=== PATIENT | female | born 1980 | race American Indian/Alaskan Native ===

== ENCOUNTER 2018-01-03 11:00 | Outpatient (CLI) | payer OTHER | END 2018-01-03 11:01 | disposition home or self-care (01) | LOC: SLR 11:00 | PROVIDERS: ATTEND Otolaryngology | DX: G47.30 Sleep apnea, unspecified (principal); R40.0 Somnolence | CPT/HCPCS: 95810 ==

== ENCOUNTER 2018-01-12 12:48 | Outpatient (CLI) | payer OTHER ==
--- NOTE | 2018-01-12 14:16 | Cat Scan Report ---
CT SINUSES WITHOUT CONTRAST: HISTORY: Chronic ethmoidal sinusitis. TECHNIQUE: Helical CT with sagittal and coronal reformatted images. The visualized sinus groups are well aerated. The ostiomeatal units are normal and patent bilaterally. The nasal septum is midline. The nasal turbinates are symmetrical. There is no evidence of mel bullosa or sinusitis. CONCLUSION: Negative sinus CT.
== END 2018-01-12 12:49 | disposition home or self-care (01) ==
LOC: CT 12:48
PROVIDERS: ATTEND Otolaryngology
DX: J32.2 Chronic ethmoidal sinusitis (principal)
CPT/HCPCS: 70486

== ENCOUNTER 2019-03-14 06:45 | Day surgery (SDC) | payer OTHER ==
--- NOTE | 2019-03-14 08:13 | Anesthesia Day of Surgery ---
Anesthesia Day of Surgery - Day of Surgery Patient Examined: Yes Patient H&P Reviewed: Yes Patient is NPO: Yes
--- NOTE | 2019-03-14 08:17 | Anesthesia Consultation ---
Anesthesia Consult and Med Hx Date of service: 03/14/19 - Airway Anesthetic Teeth Evaluation: Good ROM Head & Neck: Adequate Mental/Hyoid Distance: Adequate Mallampati Class: Class I Intubation Access Assessment: Good - Pre-Operative Health Status ASA Pre-Surgery Classification: ASA3 Proposed Anesthetic Plan: MAC - Other Systems Hx Obesity: Yes
[2019-03-14] MEDS ORDERED: NACL 0.9% 1000 ML 1,000 ML IV SCH (09:00)
[2019-03-14] MEDS ORDERED: VERSED ONE (09:29)
[2019-03-14] MEDS ORDERED: DIPRIVAN 10 MG/ML IV ONE (09:30)
--- NOTE | 2019-03-14 11:42 | Operative Report ---
SURGEON: Fletcher Thakur MD VALVE INSPECTOR: Tia Hunter MD PREOPERATIVE DIAGNOSIS: Morbid obesity. POSTOPERATIVE DIAGNOSIS: Normal esophagogastroduodenoscopy. PROCEDURE: EGD. ANESTHESIA: MAC. COMPLICATIONS: None. BLEEDING: None. SPECIMENS: None. INDICATIONS: The patient is a 38-year-old female with a history of morbid obesity. She is here for preoperative EGD in preparation for her weight loss surgery. Informed consent was obtained. DESCRIPTION OF PROCEDURE: The patient was brought to the GI suite where she was placed in the left lateral decubitus position and underwent MAC anesthesia. A bite block was placed and a timeout was called. A standard adult gastroscope was inserted into the oropharynx, down the esophagus, into the stomach and the first portion of the duodenum. There was no abnormality up to the portion of D1. On retroflexion view, there was no hiatal hernia. With this, the air was suctioned out. The gastroscope was removed. The patient tolerated the procedure well with no immediate complications and was transferred to the PACU in stable condition. JOB# [id number] RASHAD/ROZ
[2019-03-14 11:55] VITALS: BP 107/57
== END 2019-03-14 06:46 | disposition home or self-care (01) ==
LOC: GIO 06:45
PROVIDERS: ATTEND Specialist
DX: K30 Functional dyspepsia (principal); E66.01 Morbid (severe) obesity due to excess calories; Z87.891 Personal history of nicotine dependence; Z88.0 Allergy status to penicillin; Z79.899 Other long term (current) drug therapy; Z68.42 Body mass index [BMI] 45.0-49.9, adult
CPT/HCPCS: 43235; 81025; J2250; J2704; J7030

== ENCOUNTER 2019-03-21 07:30 | Inpatient (IN) | payer OTHER ==
--- NOTE | 2019-03-20 10:04 | Anesthesia Consultation ---
Anesthesia Consult and Med Hx Date of service: 03/20/19 - Airway Anesthetic Teeth Evaluation: Good ROM Head & Neck: Adequate Mental/Hyoid Distance: Adequate Mallampati Class: Class I Intubation Access Assessment: Probably Good - Pulmonary Exam CTA: Yes - Cardiac Exam Cardiac Exam: RRR - Pre-Operative Health Status ASA Pre-Surgery Classification: ASA3 Proposed Anesthetic Plan: General - Pulmonary Hx Smoking: Yes (former smoker) Hx Respiratory Symptoms: No COPD: No Hx Sleep Apnea: No (sleep study neg) - Cardiovascular System Hx Hypertension: No Hx Heart Attack/AMI: No (neg cardiology work up) Hx Percutaneous Transluminal Coronary Angioplasty (PTCA): No Hx Cardia Arrhythmia: No - Central Nervous System Hx Seizures: No CVA: No Hx Psychiatric Problems: No - Gastrointestinal Hx Gastroesophageal Reflux Disease: No - Endocrine Hx Renal Disease: No Hx Liver Disease: No Hx Insulin Dependent Diabetes: No Hx Non-Insulin Dependent Diabetes: No Hx Thyroid Disease: No - Hematic Hx Anemia: No - Other Systems Hx Substance Use: Yes (Marijuana -last used 03/09/19) Hx Cancer: No Hx Obesity: Yes (BMI 48) - Additional Comments Anesthesia Medical History Comments: No prior GA. No FHx anesthetic complications. Preop cardiology eval unremarkable. Outside lab results drawn 03/09/19 requested.
[~2019-03-21 07:30] MED LIST: CLEOCIN 600 MG/50 mL 600 MG/50 ML BAG IV NR; FLAGYL 500 MG/100 ML 500 MG/100 ML BAG IV NR; GENTAMICIN IV SCH; LACTATED RINGERS 1,000 ML IV SCH; VERSED IV NR
[2019-03-21] MEDS ORDERED: GENTAMICIN 200 MG in NACL 0.9% 100 ML IV NR (10:00)
--- NOTE | 2019-03-21 10:05 | Anesthesia Day of Surgery ---
Anesthesia Day of Surgery - Day of Surgery Patient Examined: Yes Patient H&P Reviewed: Yes Patient is NPO: Yes
[2019-03-21] MEDS ORDERED: NORCO PO PRN (10:13)
[2019-03-21] MEDS ORDERED: ZOFRAN IV PRN ×2 (10:13→15:00)
[2019-03-21] MEDS ORDERED: APRESOLINE IV PRN (10:13)
[2019-03-21] MEDS ORDERED: MORPHINE IV PRN (10:13)
[2019-03-21] MEDS ORDERED: REGLAN IV PRN (10:13)
[2019-03-21] MEDS ORDERED: PROVENTIL IH NR (10:15)
[2019-03-21] MEDS ORDERED: LACTATED RINGERS 1,000 ML IV SCH (11:00)
[2019-03-21] MEDS ORDERED: LOVENOX SUB-Q NR (11:00)
[2019-03-21] MEDS ORDERED: XYLOCAINE MPF 2% ONE (12:20)
[2019-03-21] MEDS ORDERED: ZEMURON IV ONE (12:20)
[2019-03-21] MEDS ORDERED: DIPRIVAN 10 MG/ML IV ONE (12:20)
[2019-03-21] MEDS ORDERED: DILAUDID ONE (12:20)
[2019-03-21] MEDS ORDERED: MARCAINE-EPI 0.5%-1:200,000 INFILTRATI ONE ×2 (12:33→13:39)
[2019-03-21] MEDS ORDERED: XYLOCAINE 1% 20 mL ONE (12:33)
[2019-03-21] MEDS ORDERED: XYLOCAINE 1% 20 mL INFILTRATI ONE (13:40)
[2019-03-21] MEDS ORDERED: NACL 0.9% IR ONE ×2 (13:40)
[2019-03-21] MEDS ORDERED: ROBINUL ONE (14:07)
[2019-03-21] MEDS ORDERED: BLOXIVERZ ONE (14:07)
[2019-03-21] MEDS ORDERED: BRIDION IV ONE ×2 (14:09→14:11)
[2019-03-21] MEDS ORDERED: ZOFRAN ONE (14:20)
[2019-03-21] MEDS: DILAUDID IV PRN ×5 (14:37→22:30)
[2019-03-21] MEDS: TORADOL IV SCH ×3 (14:37→23:50)
--- NOTE | 2019-03-21 16:39 | Post Anesthesia Evaluation ---
- Post Anesthesia Evaluation Patient Participated: Yes Airway Patent: Yes Stable Respiratory Function: Yes Nausea/Vomiting: No Temp > 96.8F: Yes Pain Manageable: Yes Adequeate Hydration: Yes Anesthesia Complications: No
[2019-03-21] MEDS: MYLICON PO PRN (17:54)
[2019-03-22] MEDS: DILAUDID IV PRN (02:49)
[2019-03-22] MEDS: MYLICON PO PRN ×2 (02:50→10:45)
[2019-03-22] MEDS: TORADOL IV SCH (06:22)
--- NOTE | 2019-03-22 07:00 | Discharge Summary ---
Providers - Providers Date of Admission: 03/21/19 09:29 Date of discharge: 03/22/19 Attending physician: MARIAA THAKUR Hospitalization Reason for admission: postop care Condition: Good Procedures: 03/21/19: Laparoscopic sleeve gastrectomy Hospital course: 38F admitted after her operation for routine care. She was managed on the general surgical floor. She ambulated, tolerated a CLD, pain controlled and was dc home in stable condition. Disposition: DC-01 TO HOME OR SELFCARE Core Measure Documentation - Palliative Care Palliative Care/ Comfort Measures: Not Applicable - Core Measures Any of the following diagnoses?: none - VTE Discharge Requirements Deep Vein Thrombosis/Pulmonary Embolism Present on Admission: No - Acute NE Discharge Requirements Aspirin at discharge: No Reason for no aspirin on DC: Surgical contraindication - Heart Failure Discharge Requirements AMY/ARB for LVSD if EF <40%: Not Applicable - Stroke Discharge Requirements Statin for LDL = or >70 mg/dl on DC: Not Applicable Exam - Physical Exam Narrative exam: Gen: AAO, NAD Heart: RRR Lungs: Clear Abd: Obese, soft, NT, ND. Bandages c/d/i. Ext: No LE Edema - Constitutional Vitals: Temp Pulse Resp BP Pulse Ox 98.8 F 70 18 110/73 97 03/21/19 23:41 03/21/19 23:41 03/22/19 02:49 03/21/19 23:41 03/21/19 23:41 Plan Diet: clear liquids Wound: keep clean and dry Special Instructions: no heavy lifting Additional Instructions: Tony Thakur as scheduled Follow up with: DR JAMES [Other] - 7 Days
[2019-03-22] MEDS ORDERED: LOVENOX SUB-Q SCH (10:00)
[2019-03-22 11:56] LABS: Basophils % (Auto) 0.1 % (0.0-1.8); Eosinophils # (Auto) 0.1 K/mm3 (0.0-0.4); Eosinophils % (Auto) 0.6 % (0.0-4.3); Hematocrit 27.6 % (30.3-42.9); Lymphocytes # (Auto) 2.9 K/mm3 (1.2-5.4); Lymphocytes % (Auto) 28.4 % (13.4-35.0); Mean Corpuscular HGB Conc 33 % (30-34); Mean Corpuscular Volume 72 fl (79-97); Monocytes # (Auto) 0.7 K/mm3 (0.0-0.8); Monocytes % (Auto) 7.3 % (0.0-7.3); Platelet Count 329 K/mm3 (140-440); Red Blood Count 3.85 M/mm3 (3.65-5.03); Red Cell Distribution Width 19.2 % (13.2-15.2)
[2019-03-22 12:24] LABS: Alanine Aminotransferase 33 units/L (7-56); Albumin 3.3 g/dL (3.9-5); BUN/Creatinine Ratio 9; Blood Urea Nitrogen 6 mg/dL (7-17); Calcium 8.4 mg/dL (8.4-10.2); Hemolysis Index 3
[2019-03-22 12:54] VITALS: BP 115/74
== END 2019-03-22 13:10 | disposition home or self-care (01) | DRG 621 ==
LOC: 3A 09:29 → 3B-SURG 15:34
PROVIDERS: ADMIT Specialist; ATTEND Specialist
PROC: 0DB64Z3 Excision of Stomach, Percutaneous Endoscopic Approach, Vertical (ICD-10-PCS; principal; 2019-03-21)
PROC: 0BQT4ZZ Repair Diaphragm, Percutaneous Endoscopic Approach (ICD-10-PCS; 2019-03-21)
DX: E66.01 Morbid (severe) obesity due to excess calories (principal); K30 Functional dyspepsia; F12.90 Cannabis use, unspecified, uncomplicated; K44.9 Diaphragmatic hernia without obstruction or gangrene; E78.5 Hyperlipidemia, unspecified; Z68.42 Body mass index [BMI] 45.0-49.9, adult; Z87.891 Personal history of nicotine dependence
CPT/HCPCS: 36415; 80053; 81025; 85025; 88307; G0378; A4217; J1170; J1580; J1650; J1885; J2405; J2704; J2710; J2765; J7120